=== PATIENT | male | born 1980 | race Caucasian/White ===

== ENCOUNTER 2019-01-09 11:05 | Emergency (ER) | payer MEDICAID ==
[~2019-01-09] VITALS: Ht 175.3 cm; Wt 90.7 kg
[2019-01-09 11:12] VITALS: BP 150/80
--- NOTE | 2019-01-09 11:26 | NUR ---
PATIENT AMBULATED TO BED 8.
--- NOTE | 2019-01-09 11:30 | NUR ---
38/M PRESENTS TO THE ED WITH C/O ABD PAIN, BODYACHES, AND N/V/D. PT STATES ABD PAIN STARTED TODAY, SAYS IT FEELS LIKE ITS "SQUEEZING" AND RATES PAIN 10/10 AT THIS TIME. BOWEL SOUNDS HYPERACTIVE IN ALL QUADRANTS. PT STATES THAT HE HAS HAD THE "STOMACH FLU", N/V/D FOR 3 DAYS AND STATES THAT HE HAS BEEN UNABLE TO KEEP FOOD DOWN. SKIN IS WARM, PINK, DRY. PT PRESENTS WITH A CLEAR SPEECH AND IS CONVERSING APPROPRIATELY. PT POSITIONED FOR COMFORT, LIGHT DIMMED, BED RAIL UP X 1 FOR PT SAFETY. ER MD TO SEE PT. YUE HX: DENIES RX: PT STATES THAT HE WAS PRESCRIBED LANSOPRAZOLE FROM A DIFFERENT FACILITY.
[2019-01-09] MEDS ORDERED: NACL 0.9% 1,000 ML IV ONE (11:42)
[2019-01-09] MEDS ORDERED: ONDANSETRON 4 MG/2 ML VIAL IVP ONE (11:45)
[2019-01-09] MEDS ORDERED: KETOROLAC 30 MG/ML VIAL IVP ONE (11:45)
[2019-01-09 13:20] LABS: BASOPHILS % (AUTO) 0.3 % (0.0-2.0); EOSINOPHILS % (AUTO) 0.3 % (0.0-4.0); HEMATOCRIT 44.5 % (36-52); HEMOGLOBIN 15.2 g/dL (12.0-18.0); LYMPHOCYTES # (AUTO) 0.4 K/uL (2.0-11.5); LYMPHOCYTES % (AUTO) 7.8 % (20.5-51.1); MEAN CORPUSCULAR HEMOGLOBIN 35 pg (27-31); MEAN CORPUSCULAR HGB CONC 34 g/dL (33-37); MEAN CORPUSCULAR VOLUME 101.9 fL (80-94); MONOCYTES # (AUTO) 0.6 K/uL (0.8-1.0); NEUTROPHILS # (AUTO) 4.4 K/uL (1.8-7.7); NEUTROPHILS % (AUTO) 80.6 % (42.2-75.2); PLATELET COUNT (AUTO) 101 K/uL (140-450); RED BLOOD CELL COUNT(AUTO) 4.37 MIL/uL (4.20-6.10); RED CELL DISTRIBUTION WIDTH 13.9 % (11.6-13.7); WHITE BLOOD COUNT (AUTO) 5.4 K/uL (4.8-10.8)
[2019-01-09 13:24] LABS: CARBON DIOXIDE 25.7 mmol/L (21-32); CREATININE 0.8 mg/dL (0.7-1.3); POTASSIUM 3.7 mmol/L (3.5-5.1)
[2019-01-09 13:30] LABS: TOTAL BILIRUBIN 0.9 mg/dL (0.0-1.0)
--- NOTE | 2019-01-09 13:58 | NUR ---
Patient does not wish to proceed with medical care recommended by Dr. Hammonds. Patient given information related to possible complications, up to and including , which could occur as a result of leaving hospital at this time. Patient verbalizes understanding of risks involved leaving against medical advice. Patient has signed AMA form.
== END 2019-01-09 13:58 | disposition left against medical advice (07) ==
LOC: MED 11:05
DX: K85.90 Acute pancreatitis without necrosis or infection, unspecified (principal); R11.2 Nausea with vomiting, unspecified; R19.7 Diarrhea, unspecified
CPT/HCPCS: 36415; 80053; 83690; 85025; 96361; 96374; 96375; 99283; J1885; J2405; J7030

== ENCOUNTER 2019-01-09 17:26 | Inpatient (IN) | payer MEDICAID ==
[~2019-01-09] VITALS: Ht 175.3 cm; Wt 84.8 kg
[2019-01-09 17:42] VITALS: BP 155/83
--- NOTE | 2019-01-09 17:53 | NUR ---
NOTIFIED DR. PATHAK AND CHARGE NURSE REGARDING THIS PT'S SITUATION, WE DO NOT HAVE ANY BED AVAILABLE, PER CHARGE NURSE, WE WILL CALL PT IN ONCE WE HAVE BED. PT WALKED TO LOBBY WITH STABLE CONDITION.
--- NOTE | 2019-01-09 18:38 | NUR ---
PT TAKEN TO BED 11.
--- NOTE | 2019-01-09 18:44 | NUR ---
38 Y/O MALE PRESENTING WITH UPPER ABD PAIN X3 DAYS, PRESSURE PAIN 10/10, N/V, PER PATIENT CANNOT HOLD ANYTHING DOWN. LITTLE INTAKE. DENIES DIARRHEA. NO MEDICAL HX. BOWEL SOUNDS AUSCULTATED, NORMOACTIVE. SIDE RAIL X1.
--- NOTE | 2019-01-09 19:17 | NUR ---
GAVE REPORT TO MARILYN PEOPLES.
--- NOTE | 2019-01-09 19:20 | NUR ---
RECEIVED REPORT FROM SHELTON CHENG. ASSUME CARE AT THIS TIME
[2019-01-09] MEDS ORDERED: KETOROLAC 30 MG/ML VIAL IVP ONE (19:55)
[2019-01-09] MEDS ORDERED: NACL 0.9% 1,000 ML IV ONE (19:55)
[2019-01-09] MEDS ORDERED: ONDANSETRON 4 MG/2 ML VIAL IVP ONE ×2 (19:55→22:00)
--- NOTE | 2019-01-09 20:00 | NUR ---
PT WENT TO CT BY WHEEL CHAIR
--- NOTE | 2019-01-09 20:21 | NUR ---
BLOOD DRAWN AND TAKEN TO LAB
[2019-01-09 20:45] LABS: BASOPHILS % (AUTO) 0.2 % (0.0-2.0); EOSINOPHILS % (AUTO) 0.1 % (0.0-4.0); HEMATOCRIT 42.7 % (36-52); HEMOGLOBIN 14.7 g/dL (12.0-18.0); LYMPHOCYTES # (AUTO) 0.3 K/uL (2.0-11.5); LYMPHOCYTES % (AUTO) 4.5 % (20.5-51.1); MEAN CORPUSCULAR HEMOGLOBIN 35 pg (27-31); MEAN CORPUSCULAR HGB CONC 34 g/dL (33-37); MONOCYTES # (AUTO) 0.6 K/uL (0.8-1.0); MONOCYTES % (AUTO) 9.9 % (1.7-9.3); NEUTROPHILS # (AUTO) 5.2 K/uL (1.8-7.7); NEUTROPHILS % (AUTO) 85.3 % (42.2-75.2); PLATELET COUNT (AUTO) 97 K/uL (140-450); RED BLOOD CELL COUNT(AUTO) 4.18 MIL/uL (4.20-6.10); RED CELL DISTRIBUTION WIDTH 14.4 % (11.6-13.7); WHITE BLOOD COUNT (AUTO) 6.1 K/uL (4.8-10.8)
[2019-01-09 21:04] LABS: ANION GAP 15.2 (8-16); CARBON DIOXIDE 26.5 mmol/L (21-32); CREATININE 0.8 mg/dL (0.7-1.3); POTASSIUM 3.7 mmol/L (3.5-5.1)
[2019-01-09 21:09] LABS: ALBUMIN 4.1 g/dL (3.4-5.0); TOTAL BILIRUBIN 1.3 mg/dL (0.0-1.0)
--- NOTE | 2019-01-09 21:30 | NUR ---
PATIENT STILL COMPLAINING OF PAIN IN ABDOMEN AND FEELING NAUSEOUS DESPITE ADMINISTERING TORADOL AND ZOFRAN.
--- NOTE | 2019-01-09 21:51 | NUR ---
SPOKE WITH RAHAT WITH CASE MANAGEMENT TO GIVE PATIENT CLINICAL INFORMATION. Addendum: 01/09/19 at 2152 by GINI RAHAT IS RECOMMENDING 24 HOUR OBSERVATION FOR CLINICAL REVIEW.
[2019-01-09] MEDS ORDERED: fentaNYL 0.05 MG/ML VIAL IVP ONE (22:00)
[2019-01-09] MEDS ORDERED: ONDANSETRON 4 MG/2 ML VIAL IM/IVP PRN (22:10)
[2019-01-09] MEDS ORDERED: MORPHINE SULFATE 2 MG/ML SYR IVP PRN (22:10)
[2019-01-09] MEDS ORDERED: DOCUSATE SODIUM 100 MG GELCAP PO PRN (22:10)
[2019-01-09] MEDS ORDERED: ACETAMINOPHEN 325 MG TAB PO PRN (22:10)
--- NOTE | 2019-01-09 22:24 | NUR ---
PATIENT GIVEN ANOTHER DOSE OF ZOFRAN AND 0.5MG FENTANYL FOR PAIN RATED AT 10/10. RESIDENT DOCTOR AT BEDSIDE.
[2019-01-09 22:39] LABS: PROTHROMBIN TIME 10.3 secs (10.8-13.4)
[2019-01-09 22:49] LABS: MAGNESIUM 1.5 mg/dL (1.8-2.4); PHOSPHORUS 2.9 mg/dL (2.5-4.9); THYROID STIMULATING HORMONE 1.89 uIU/mL (0.34-3.74)
[2019-01-09] MEDS ORDERED: LORazepam 2 MG/ML VIAL IVP PRN (22:50)
[2019-01-09] MEDS ORDERED: ENALAPRILAT 2.5 MG/2 ML VIAL IVP ONE (22:50)
--- NOTE | 2019-01-09 23:00 | NUR ---
Patient arrived in unit via gurney, accompanied by two DIP BRAZIER's; patient able to ambulate from gurney to bed without assistance. Patient A/Ox4, able to make needs known, Bengali speaking. Introduced self, updated board, oriented patient to room and hospital environment. No SOB or distress noted, on room air. IV site on right antecubital, 20 gauge, saline locked. Skin intact. Chief complaint is epigastric abdominal for 3 days; DX is Pancreatitis. Bed in the lowest position, call light within reach,. Initial assessment done. Will continue to monitor.
[2019-01-09] MEDS ORDERED: KETOROLAC 15 MG/ML VIAL IVP PRN (23:05)
[2019-01-09] MEDS: DEXT 5% / NACL 0.9% 500 ML IV SCH (23:36)
[2019-01-09] MEDS ORDERED: MORPHINE SULFATE 2 MG/ML SYR IVP ONE (23:55)
[2019-01-10] VITALS: BP 157/97
[2019-01-10 01:04] LABS: APPEARANCE,URINE CLEAR (CLEAR); BILIRUBIN,URINE 1+ (NEGATIVE); BLOOD, URINE NEGATIVE (NEGATIVE); COLOR,URINE YELLOW (YELLOW); LEUKOCYTE ESTERASE ,URINE NEGATIVE (NEGATIVE); NITRITE, URINE NEGATIVE (NEGATIVE); UGLUCOSE NEGATIVE (NEGATIVE)
[2019-01-10 01:26] LABS: BARBITURATE, URINE NEGATIVE ng/ml (NEG <=200); BENZODIAZEPINE, URINE NEGATIVE ng/mL (NEG <=200); CANNABINOID, URINE NEGATIVE ng/mL (NEG <=50); COCAINE, URINE NEGATIVE ng/mL (NEG <=300); OPIATE, URINE NEGATIVE ng/mL (NEG <=2000); PHENCYCLIDINE SCREEN,URINE NEGATIVE ng/mL (NEG <=25)
[2019-01-10] MEDS: DEXT 5% / NACL 0.9% 500 ML IV SCH ×3 (01:48→06:17)
[2019-01-10] MEDS ORDERED: ZOLPIDEM 5 MG TAB PO ONE (02:20)
--- NOTE | 2019-01-10 02:30 | NUR ---
Pateint complained of restless ness and pain at this time. Administered PRN pain medication and asked Dr. Avila for sleep aid. Orders made and carried out. Will monitor patient.
[2019-01-10] MEDS: LORazepam 1 MG TAB PO SCH ×3 (04:07→20:36)
--- NOTE | 2019-01-10 04:30 | NUR ---
Rounds done; no SOB or distress noted. Patient asleep, eyes closed, visible chest rise and fall noted.
[2019-01-10 05:57] LABS: BASOPHILS % (AUTO) 0.3 % (0.0-2.0); EOSINOPHILS % (AUTO) 0.1 % (0.0-4.0); HEMOGLOBIN 13.6 g/dL (12.0-18.0); LYMPHOCYTES # (AUTO) 0.4 K/uL (2.0-11.5); LYMPHOCYTES % (AUTO) 10.6 % (20.5-51.1); MEAN CORPUSCULAR HEMOGLOBIN 35 pg (27-31); MEAN CORPUSCULAR HGB CONC 34 g/dL (33-37); MEAN CORPUSCULAR VOLUME 101.6 fL (80-94); MONOCYTES # (AUTO) 0.5 K/uL (0.8-1.0); MONOCYTES % (AUTO) 11.6 % (1.7-9.3); NEUTROPHILS # (AUTO) 3.2 K/uL (1.8-7.7); NEUTROPHILS % (AUTO) 77.4 % (42.2-75.2); PLATELET COUNT (AUTO) 75 K/uL (140-450); RED BLOOD CELL COUNT(AUTO) 3.94 MIL/uL (4.20-6.10); RED CELL DISTRIBUTION WIDTH 13.9 % (11.6-13.7); WHITE BLOOD COUNT (AUTO) 4.1 K/uL (4.8-10.8)
[2019-01-10] MEDS: HYDROcodone/APAP 7.5/325 MG 1 TAB PO PRN ×2 (06:03→13:34)
[2019-01-10 06:07] LABS: ANION GAP 12.1 (8-16); CARBON DIOXIDE 27.1 mmol/L (21-32); CREATININE 0.7 mg/dL (0.7-1.3); POTASSIUM 3.2 mmol/L (3.5-5.1)
--- NOTE | 2019-01-10 06:15 | NUR ---
Vitals stable, due meds given. Will endorse to AM shift RN for continuity of care.
[2019-01-10 06:18] LABS: MAGNESIUM 1.6 mg/dL (1.8-2.4); PHOSPHORUS 2.5 mg/dL (2.5-4.9)
[2019-01-10 06:23] LABS: CHOL/HDL RATIO 2.5 (1-4.5)
[2019-01-10] MEDS ORDERED: MULTIVITAMIN-12 10 ML, THIAMINE 100 MG, FOLIC ACID 1 MG, MAGNESIUM SULFATE 50% 2,000 MG... IV ONE ×5 (07:00)
--- NOTE | 2019-01-10 07:05 | NUR ---
RECEIVED REPORT FROM NIGHTSHIFT NURSE. PATIENT IS ALERT AND AWAKE UPON ARRIVAL. ABLE TO MAKE NEEDS KNOWN. NO SIGNS OF DISTRESS NOTED AT THIS TIME. PATIENT IS NPO AND WAS NOTIFIED. ABLE TO VERBALIZE UNDERSTANDING. SIGN IS POSTED ON THE FRONT OF THE DOOR. SKIN WARM AND DRY TO TOUCH. RESPIRATIONS EVEN AND UNLABORED WITH NO SIGNS OF SOB OR RESPIRATORY DISTRESS. SAFETY MEASURES: HOB ELEVATED, BED IN LOWEST POSITION, AND CALL LIGHT WITHIN REACH.
[2019-01-10 08:00] VITALS: BP 133/89
[2019-01-10] MEDS ORDERED: MULTIVITAMIN-12 10 ML, THIAMINE 100 MG, FOLIC ACID 1 MG, MAGNESIUM SULFATE 50% 2,000 MG... IV SCH ×5 (08:00)
[2019-01-10] MEDS ORDERED: POTASSIUM CHLORIDE 10 MEQ TABER PO SCH ×2 (08:00→16:00)
--- NOTE | 2019-01-10 08:16 | NUR ---
PATIENT HAS BEEN SCREENED AND CATEGORIZED MODERATE NUTRITION RISK. PATIENT WILL BE SEEN WITHIN 3-5 DAYS OF ADMISSION. 01/12/19 01/14/[address]
[2019-01-10] MEDS ORDERED: METOPROLOL 25 MG TAB PO SCH (09:00)
[2019-01-10] MEDS ORDERED: ESCITALOPRAM 20 MG TAB PO SCH (09:00)
[2019-01-10] MEDS: chlordiazePOXIDE 25 MG CAP PO SCH ×3 (09:40→17:17)
[2019-01-10] MEDS: DEXT 5% /NACL 0.9% 1,000 ML IV SCH ×5 (09:42→22:59)
--- NOTE | 2019-01-10 09:48 | NUR ---
ADMINISTERED MEDICATION PRESCRIBED PER MD. PATIENT TOLERATED WELL. PT COMPLAINED OF NAUSEA SO PRN ZOFRAN WAS GIVEN. NO COMPLICATIONS AT THIS TIME
--- NOTE | 2019-01-10 10:36 | NUR ---
DC PLANNIN38 Y/O MALE PATIENT FROM HOME ADMITTED DUE TO EPIGASTRIC PAIN X3 DAYS. PATIENT WITH HISTORY OF HTN, ANXIETY AND ETOH USE. ON BANANA BAG. ROOM AIR. ABD CT SHOWED SUSPICIOUS FOR PANCREATITIS AND HEPATOMEGALY. NO CONSULTS AT THIS TIME. DC PLAN PENDING ON PATIENT'S RESPONSE TO TREATMENT.
--- NOTE | 2019-01-10 11:44 | NUR ---
Direct Care Specialist Note: Basic Screen: Yes High Risk DC Screen [place]: TRISH Thomas Relationship: FRIEND Pre-Admission Living Arrangements: Lives with Other Other: PARENTS Prior ADL Independent Current Home Health Name/Tel: N/A Current DME/02 Name/Tel: N/A Current Hospice Name/Tel: N/A Current Dialysis Name/Tel: N/A Healthcare Decision Maker: Patient Advance Directive No - REFUSED Physician Orders for Life Sustaining Treatment Form No Patient/Family Have Educational Needs No Information Taught: Advance Directive Person Taught: Patient Teaching Tools: Verbal Factors Affecting Learning: None Participation Level: Refused Evaluation: Verbalizes Understanding Discipline: Case Mgt/Social Svcs Tentative Discharge Plan/Destination: No Needs Identified Will require assistance post discharge: No Referred to Box Sorter: No Tentative Discharge Plan Summary: Patient is a 38 year old male admitted for pancreatitis. Patient has PMHX of hypertension. Patient was admitted from home. SW verified demographics with patient. Patient stated his PCP is Dr. Mary Morales and was last seen 3 months ago. Patient reports a history of anxiety. SW offered mental health resources but patient refused. Patient reports no substance abuse history. Patient's tentative plan after discharge is to return home. No further needs identified. Signature: [place] Hubbard Date: Jan 10, 2019 Time: 11:43
--- NOTE | 2019-01-10 11:50 | NUR ---
PT IS RESTING IN BED. PT IS STABLE. DENIES ANY VOMITING OR DIARRHEA. ABLE TO MAKE NEEDS KNOWN. RESPIRATIONS EVEN AND UNLABORED WITH NO SOB OR RESPIRATORY DISTRESS.
--- NOTE | 2019-01-10 13:34 | NUR ---
ADMINISTERED SCHEDULED MED PRESCRIBED BY MD ORDER. PATIENT TOLERATED WELL. MEDICATION EDUCATION PROVIDED TO PATIENT. PT WAS ABLE TO VERBALIZE UNDERSTANDING. PT STATED THAT HE HAD PAIN OF 5/10 ON THE PAIN SCALE ON ABDOMINAL AREA. PAIN MEDICATION ADMINISTERED PRESCRIBED BY MD. PT EDUCATED ON PAIN MEDICATION REGIME. PT RESTING IN BED WITH THE LIGHTS DIMMED.
--- NOTE | 2019-01-10 15:26 | NUR ---
MANAGER QUALITY ASSISTING PATIENT TO THE BATHROOM. NO SIGNS OR SYMPTOMS OF DISTRESS AT THIS MOMENT. INSTRUCT PATIENT TO USE CALL LIGHT FOR ANY ASSISTANCE.
--- NOTE | 2019-01-10 15:37 | NUR ---
INFORMED PATIENT THAT DR HAS CHANGED HIS DIET TO CLEAN LIQUID, PATIENT WAS AWARE. PROVIDED ICED WATER TO PATIENT. PATIENT AWAKE AND LOOKING AT HIS PHONE AT THIS TIME. NO SIGNS OF DISTRESS NOTED. SAFETY MEASURES IN PLACE. BED IN LOW POSITION AND CALL LIGHT WITHIN REACH. INSTRUCTED PATIENT TO USE THE CALL LIGHT FOR ANY ASSISTANCE AND PATIENT WAS AWARE.
--- NOTE | 2019-01-10 15:57 | NUR ---
ADMINISTERED MAG VIA IVP PER MD ORDER FOR LOW MAG 1.6 FROM LAB, MED EDUCATION PROVIDED TO PATIENT AND PATIENT VERBALIZED UNDERSTANDING. PATIENT IS AWAKE AND TALKING TO VISITORS BY BEDSIDE. DENIED PAIN, SOB, AND DIZZINESS. NO SIGNS OF DISTRESS NOTED. BED IN LOW POSITION AND CALL LIGHT WITHIN REACH. INSTRUCTED PATIENT TO USE THE CALL LIGHT FOR ANY ASSISTANCE AND PATIENT WAS AWARE.
[2019-01-10 16:00] VITALS: BP 143/67
[2019-01-10] MEDS ORDERED: MAG SULF 2000 MG/WATER PREMIX 50 ML IV SCH (16:00)
--- NOTE | 2019-01-10 16:25 | NUR ---
PATIENT RESTING IN BED. FAMILY AT BEDSIDE. ADMINISTERED MEDICATION ORDERED PER MD. PATIENT TOLERATED WELL. MEDICATION EDUCATION PERFORMED. PT WAS RECEPTIVE AND ABLE TO VERBALIZE TEACHING INSTRUCTIONS. NO COMPLAINTS OR CONCERNS. SAFETY PRECAUTIONS: HOB ELEVATED, BED IN LOWEST POSITION, AND CALL LIGHT WITHIN REACH.
--- NOTE | 2019-01-10 17:18 | NUR ---
ADMINISTERED MEDICATION PRESCRIBED. EDUCATED PATIENT ON MEDICATION REGIME. PT ABLE TO VERBALIZE TEACHING BACK. PT IS RESTING IN BED AND SHOWS NO SIGNS OR SYMPTOMS OF DISTRESS
--- NOTE | 2019-01-10 19:07 | NUR ---
ENDORSED TO NIGHTSHIFT NURSE AT BEDSIDE. PATIENT IN BED ALERT AND ORIENTED. NO SIGNS AND SYMPTOMS OF DISTRESS. PATIENT IN STABLE CONDITION.
--- NOTE | 2019-01-10 19:08 | NUR ---
Received endorsement from AM shift RN; patient A/Ox4, able to make needs known, Beninese speaking, ambulatory. Introduced self, updated board. No SOB or distress noted, on room air. IV site on right antecubital, 20 gauge, running IVF at 250mL/hr. Skin intact. Bed in the lowest position, call light within reach,. Initial assessment done. Will continue to monitor.
[2019-01-10] MEDS ORDERED: ZOLPIDEM 10 MG TAB PO PRN (21:00)
--- NOTE | 2019-01-10 21:52 | NUR ---
Due meds given, tolerated well.
--- NOTE | 2019-01-10 23:47 | NUR ---
Vitals taken, no distress noted.
[2019-01-11] VITALS: BP 130/89
[2019-01-11] MEDS: HYDROcodone/APAP 7.5/325 MG 1 TAB PO PRN (00:19)
--- NOTE | 2019-01-11 02:05 | NUR ---
Checks made, no SOB or distress noted. Patient asleep, eyes closed, visible chest rise and fall noted.
[2019-01-11] MEDS: DEXT 5% /NACL 0.9% 1,000 ML IV SCH ×2 (02:57→05:44)
--- NOTE | 2019-01-11 04:10 | NUR ---
Rounds done, no SOB or distress noted.
[2019-01-11] MEDS: LORazepam 1 MG TAB PO SCH (04:17)
--- NOTE | 2019-01-11 06:00 | NUR ---
Vitals stable, due meds given. Will endorse to AM shift RM for continuity of care.
--- NOTE | 2019-01-11 06:30 | NUR ---
Patient verbalized he wanted to go AMA; Dr. Moore made aware. Risks of AMA explained, patient refused to stay at the hospital for further treatment. ID bands removed, IV removed, tip intact. Patient signed AMA paperwork. Patient ambulatory; left unit unassisted. Vitals stable upon AMA.
[2019-01-11 07:56] LABS: BASOPHILS % (AUTO) 0.8 % (0.0-2.0); EOSINOPHILS # (AUTO) 0.1 K/uL (0-0.4); HEMATOCRIT 42.3 % (36-52); HEMOGLOBIN 14.2 g/dL (12.0-18.0); LYMPHOCYTES # (AUTO) 0.6 K/uL (2.0-11.5); LYMPHOCYTES % (AUTO) 18.9 % (20.5-51.1); MEAN CORPUSCULAR HEMOGLOBIN 35 pg (27-31); MEAN CORPUSCULAR HGB CONC 34 g/dL (33-37); MEAN CORPUSCULAR VOLUME 102.8 fL (80-94); MONOCYTES # (AUTO) 0.4 K/uL (0.8-1.0); MONOCYTES % (AUTO) 13.2 % (1.7-9.3); NEUTROPHILS # (AUTO) 2.2 K/uL (1.8-7.7); NEUTROPHILS % (AUTO) 65.1 % (42.2-75.2); PLATELET COUNT (AUTO) 84 K/uL (140-450); RED BLOOD CELL COUNT(AUTO) 4.11 MIL/uL (4.20-6.10); RED CELL DISTRIBUTION WIDTH 13.9 % (11.6-13.7); WHITE BLOOD COUNT (AUTO) 3.4 K/uL (4.8-10.8)
[2019-01-11 08:17] LABS: ANION GAP 16.2 (8-16); CARBON DIOXIDE 22.4 mmol/L (21-32); CREATININE 0.7 mg/dL (0.7-1.3); POTASSIUM 3.6 mmol/L (3.5-5.1)
[2019-01-11 08:27] LABS: PHOSPHORUS 2.6 mg/dL (2.5-4.9)
== END 2019-01-11 06:30 | disposition left against medical advice (07) | DRG 282 ==
LOC: MED 17:26 → MMU 22:07 → OBSVTOIN 01-10 12:56 → MTU 01-10 21:15
PROVIDERS: ADMIT General Practice; ATTEND General Practice
DX: K85.20 Alcohol induced acute pancreatitis without necrosis or infection (principal); E83.42 Hypomagnesemia; K76.0 Fatty (change of) liver, not elsewhere classified; R16.0 Hepatomegaly, not elsewhere classified; F10.239 Alcohol dependence with withdrawal, unspecified; Y90.0 Blood alcohol level of less than 20 mg/100 ml; E87.6 Hypokalemia; I10 Essential (primary) hypertension; Z53.29 Procedure and treatment not carried out because of patient's decision for other reasons; F41.8 Other specified anxiety disorders
CPT/HCPCS: 96361; 96374; 96375; 96376; 99285; G0378; 36415; 71045; 76705; 80048; 80053; 80305; 81003; 82150; 83690; 83735; 84100; 84443; 85025; 85610; 85730; 87081; 93005; A9153; G0482; J1885; J2060; J2270; J2405; J3010; J3411; J3475; J3490; J7042; Q0092

== ENCOUNTER 2020-12-10 14:26 | Emergency (ER) | payer MEDICAID ==
[~2020-12-10] VITALS: Ht 175.3 cm; Wt 95.3 kg
[2020-12-10 14:33] VITALS: BP 149/98
[2020-12-10] MEDS ORDERED: NACL 0.9% 1,000 ML IV ONE ×2 (15:45→17:30)
[2020-12-10] MEDS ORDERED: METOCLOPRAMIDE 10 MG/2 ML INJ VIAL IVP ONE (15:45)
[2020-12-10] MEDS ORDERED: diphenhydrAMINE 50 MG/ML VIAL IVP ONE (15:45)
--- NOTE | 2020-12-10 16:00 | NUR ---
LABS DRAWN ROBERTO AVENDANO AND GIVEN TO ELIZABET
[2020-12-10 16:07] LABS: BASOPHILS % (AUTO) 0.1 % (0.0-2.0); EOSINOPHILS % (AUTO) 0.3 % (0.0-4.0); HEMATOCRIT 45.9 % (36-52); HEMOGLOBIN 15.7 g/dL (12.0-18.0); LYMPHOCYTES # (AUTO) 0.4 K/uL (2.0-11.5); LYMPHOCYTES % (AUTO) 17.5 % (20.5-51.1); MEAN CORPUSCULAR HEMOGLOBIN 31 pg (27-31); MEAN CORPUSCULAR HGB CONC 34 g/dL (33-37); MEAN CORPUSCULAR VOLUME 91.1 fL (80-94); MONOCYTES # (AUTO) 0.2 K/uL (0.8-1.0); MONOCYTES % (AUTO) 7.3 % (1.7-9.3); NEUTROPHILS # (AUTO) 1.9 K/uL (1.8-7.7); NEUTROPHILS % (AUTO) 74.8 % (42.2-75.2); PLATELET COUNT (AUTO) 108 K/uL (140-450); RED BLOOD CELL COUNT(AUTO) 5.04 MIL/uL (4.20-6.10); RED CELL DISTRIBUTION WIDTH 13.2 % (11.6-13.7); WHITE BLOOD COUNT (AUTO) 2.5 K/uL (4.8-10.8)
[2020-12-10 16:22] LABS: ALBUMIN 3.4 g/dL (3.4-5.0); ANION GAP 13.7 (8-16); CARBON DIOXIDE 26.7 mmol/L (21-32); POTASSIUM 3.4 mmol/L (3.5-5.1); TOTAL BILIRUBIN 0.5 mg/dL (0.0-1.0)
--- NOTE | 2020-12-10 16:23 | NUR ---
40 Y/O M BIB SELF FROM HOME, PATIENT PRESENTS TO ED WITH ABD PAIN, NAUSEA NO VOMITING AND DIARRHEA FOR 5 DAYS. PT STATES HE HAS HAD LACK OF APPETITE DUE TO NAUSEA. DENIES HEMATURIA, DYSURIA OR URINARY RETENTION; SKIN IS PINK/COOL/DRY; AAOX4 WITH EVEN AND STEADY GAIT; LUNGS CLEAR BL; HR EVEN AND REGULAR; PT DENIES ANY FEVER, CP, SOB, OR COUGH AT THIS TIME; PATIENT STATES PAIN OF 10/10 AT THIS TIME; VSS; PATIENT POSITIONED FOR COMFORT; HOB ELEVATED; BEDRAILS UP X2; BED DOWN. ER MD MADE AWARE OF PT STATUS. PMH: DENIES NKA MED: NYQUIL
[2020-12-10] MEDS ORDERED: KETOROLAC 15 MG/ML VIAL IVP ONE (17:30)
[2020-12-10] MEDS ORDERED: POTASSIUM CHLORIDE 10 MEQ TABER PO ONE (17:30)
[2020-12-10 18:00] LABS: APPEARANCE,URINE CLEAR (CLEAR); BILIRUBIN,URINE NEGATIVE (NEGATIVE); BLOOD, URINE NEGATIVE (NEGATIVE); COLOR,URINE DARK YELLOW (YELLOW); LEUKOCYTE ESTERASE ,URINE NEGATIVE (NEGATIVE); NITRITE, URINE NEGATIVE (NEGATIVE); UGLUCOSE NEGATIVE (NEGATIVE)
[2020-12-10] MEDS ORDERED: DIPH25TA53 PO (19:07)
[2020-12-10] MEDS ORDERED: METO-485 PO (19:07)
[2020-12-10 19:30] VITALS: BP 138/86
--- NOTE | 2020-12-10 19:32 | NUR ---
Patient discharged with v/s stable. Written and verbal after care instructions given and explained. Patient alert, oriented and verbalized understanding of instructions. Ambulatory with steady gait. All questions addressed prior to discharge. ID band removed. Patient advised to follow up with PMD. Rx of Benadryl, Reglan given. Patient educated on indication of medication including possible reaction and side effects. Opportunity to ask questions provided and answered.
== END 2020-12-10 19:32 | disposition home or self-care (01) ==
LOC: MED 14:26
DX: U07.1 COVID-19 (principal)
CPT/HCPCS: 36415; 80053; 81003; 83690; 85025; 96361; 96374; 96375; 99284; J1200; J1885; J2765; U0003

== ENCOUNTER 2020-12-14 15:23 | Emergency (ER) | payer MEDICAID ==
[~2020-12-14] VITALS: Ht 175.3 cm; Wt 93.0 kg
[~2020-12-14 15:23] MED LIST: DIPH25TA53 PO; METO-485 PO
[2020-12-14 15:45] VITALS: BP 137/89
[2020-12-14] MEDS ORDERED: BENZONATATE 100 MG CAPLF PO SCH (16:05)
[2020-12-14] MEDS ORDERED: predniSONE 20 MG TAB PO ONE (16:05)
--- NOTE | 2020-12-14 16:32 | NUR ---
PT AMBULATED TO ER BED 3
--- NOTE | 2020-12-14 16:33 | NUR ---
LAB AT BEDSIDE
--- NOTE | 2020-12-14 17:00 | NUR ---
40/M BIB SELF WITH C/O SOB. STATES HE TESTED POSITIVE FOR COVID ON 12/10/20 AND STATES HE BEGAN FEELING SOB TODAY AND BODY ACHES TODAY. PT STATES 12/01 PAIN. STATES HAS BEEN TAKING TYLENOL FOR FEVER, BUT PAIN HAS NO RELIEF FROM PAIN. MEDHX: DENIES ALLERGIES: DENIES
[2020-12-14 17:11] LABS: BASOPHILS % (AUTO) 0.2 % (0.0-2.0); HEMATOCRIT 45.5 % (36-52); HEMOGLOBIN 15.9 g/dL (12.0-18.0); LYMPHOCYTES # (AUTO) 0.4 K/uL (2.0-11.5); LYMPHOCYTES % (AUTO) 6.3 % (20.5-51.1); MEAN CORPUSCULAR HEMOGLOBIN 32 pg (27-31); MEAN CORPUSCULAR HGB CONC 35 g/dL (33-37); MEAN CORPUSCULAR VOLUME 90.7 fL (80-94); MONOCYTES # (AUTO) 0.3 K/uL (0.8-1.0); MONOCYTES % (AUTO) 4.4 % (1.7-9.3); NEUTROPHILS # (AUTO) 6.1 K/uL (1.8-7.7); NEUTROPHILS % (AUTO) 89.1 % (42.2-75.2); PLATELET COUNT (AUTO) 202 K/uL (140-450); RED BLOOD CELL COUNT(AUTO) 5.01 MIL/uL (4.20-6.10); RED CELL DISTRIBUTION WIDTH 13.2 % (11.6-13.7); WHITE BLOOD COUNT (AUTO) 6.8 K/uL (4.8-10.8)
--- NOTE | 2020-12-14 17:14 | NUR ---
RT AT BEDSIDE
[2020-12-14 17:18] LABS: ANION GAP 13.9 (8-16); CARBON DIOXIDE 24.7 mmol/L (21-32); CREATININE 1.4 mg/dL (0.6-1.3); POTASSIUM 3.6 mmol/L (3.5-5.1)
--- NOTE | 2020-12-14 17:30 | NUR ---
DR LINDSAY AT BEDSIDE EXAMINING PT
[2020-12-14] MEDS ORDERED: ACETAMINOPHEN EXTRA STRENGTH 500 MG TAB PO ONE (17:35)
[2020-12-14] MEDS ORDERED: IBUPROFEN 400 MG TAB PO ONE (17:35)
[2020-12-14] MEDS ORDERED: AZITHROMYCIN 250 MG TAB PO ONE (17:35)
[2020-12-14] MEDS ORDERED: ALBU0.0912 IH (17:38)
[2020-12-14] MEDS ORDERED: PRED20TA5 PO (17:38)
[2020-12-14] MEDS ORDERED: BENZ-196 PO (17:38)
[2020-12-14] MEDS ORDERED: INHA1SPA74 MC (17:38)
[2020-12-14] MEDS ORDERED: AZIT250T4 PO (17:38)
[2020-12-14] MEDS ORDERED: IMO2 PO (17:38)
[2020-12-14 18:17] VITALS: BP 137/89
--- NOTE | 2020-12-14 18:17 | NUR ---
Patient discharged with v/s stable. Written and verbal after care instructions given and explained. Patient alert, oriented and verbalized understanding of instructions. Ambulatory with steady gait. All questions addressed prior to discharge. ID band removed. Patient advised to follow up with PMD. Rx of PROVENTIL HFA MDI, ZITHROMAX Z PACK, TESSALON PERLE, LOPERAMIDE, DELTASONE, PROCARE SPACER given. Patient educated on indication of medication including possible reaction and side effects. Opportunity to ask questions provided and answered.
== END 2020-12-14 18:17 | disposition home or self-care (01) ==
LOC: MED 15:23
DX: U07.1 COVID-19 (principal); J12.89 Other viral pneumonia; R19.7 Diarrhea, unspecified; E86.0 Dehydration; Z79.899 Other long term (current) drug therapy
CPT/HCPCS: 36415; 36600; 71045; 80048; 82803; 84484; 85025; 93005; 99285; J7512

== ENCOUNTER 2021-09-28 09:56 | Emergency (ER) | payer MEDICAID ==
[~2021-09-28] VITALS: Ht 175.3 cm; Wt 94.3 kg
[~2021-09-28 09:56] MED LIST changes: +ALBU0.0912 IH; +AZIT250T4 PO; +BENZ-196 PO; +IMO2 PO; +INHA1SPA74 MC; +PRED20TA5 PO
[2021-09-28 10:06] VITALS: BP 145/95
--- NOTE | 2021-09-28 10:14 | NUR ---
PT AMBULATED TO BED 08.
--- NOTE | 2021-09-28 10:43 | NUR ---
40YO MALE PT C/O PRESSURED 5/10 BACK PAIN XTHIS MORNING. PT REPORTS SUDDEN ONSET DANNY MID TO LOWER BACK ALONG W/ URINARY HESITENCY AND URGENCY, DENIES BLOOD OR DYSURIA. PT BACK PRESENTS WITHOUT VISIBLE INJURY AND NON TENDER. PT NOTES "DRINKING WATER LESS THAN HE SHOULD" AND EXPRESSED CONCERN FOR "KIDNEY STONES". DENIES N/V/D , CHEST PAIN , SOB OR TAKING MEDICATION FOR PAIN. PT AAOX4, IN NO VISIBLE DISTRESS, RESPIRATIONS EVEN AND UNLABORED. HOB POSITIONED PER COMFORT , BED AT LOWEST POSITION , BED RAIL UP X1 HX: DENIES NKA
[2021-09-28] MEDS ORDERED: KETOROLAC 30 MG/ML VIAL IM ONE (10:50)
[2021-09-28 11:00] LABS: APPEARANCE,URINE CLEAR (CLEAR); BILIRUBIN,URINE NEGATIVE (NEGATIVE); BLOOD, URINE 3+ (NEGATIVE); COLOR,URINE YELLOW (YELLOW); LEUKOCYTE ESTERASE ,URINE NEGATIVE (NEGATIVE); NITRITE, URINE NEGATIVE (NEGATIVE); UGLUCOSE NEGATIVE (NEGATIVE)
[2021-09-28 11:09] LABS: RBC,URINE 11-20 (MOD) /HPF (0-5)
[2021-09-28 11:10] LABS: OTHER CASTS, URINE None Seen /LPF (None Seen)
[2021-09-28 12:36] LABS: ANION GAP 9.4 (8-16); CARBON DIOXIDE 26.9 mmol/L (21-32); POTASSIUM 4.3 mmol/L (3.5-5.1)
[2021-09-28 12:43] LABS: BASOPHILS % (AUTO) 0.4 % (0.0-2.0); EOSINOPHILS # (AUTO) 0.1 K/uL (0-0.4); EOSINOPHILS % (AUTO) 1.1 % (0.0-4.0); HEMATOCRIT 44.6 % (36-52); HEMOGLOBIN 15.4 g/dL (12.0-18.0); LYMPHOCYTES # (AUTO) 1.3 K/uL (2.0-11.5); LYMPHOCYTES % (AUTO) 14.8 % (20.5-51.1); MEAN CORPUSCULAR HEMOGLOBIN 31 pg (27-31); MEAN CORPUSCULAR HGB CONC 35 g/dL (33-37); MEAN CORPUSCULAR VOLUME 90.3 fL (80-94); MONOCYTES # (AUTO) 0.7 K/uL (0.8-1.0); MONOCYTES % (AUTO) 7.7 % (1.7-9.3); NEUTROPHILS # (AUTO) 6.5 K/uL (1.8-7.7); PLATELET COUNT (AUTO) 206 K/uL (140-450); RED BLOOD CELL COUNT(AUTO) 4.94 MIL/uL (4.20-6.10); RED CELL DISTRIBUTION WIDTH 13.4 % (11.6-13.7); WHITE BLOOD COUNT (AUTO) 8.5 K/uL (4.8-10.8)
--- NOTE | 2021-09-28 12:55 | NUR ---
PT TAKEN TO CT VIA WHEELCHAIR
--- NOTE | 2021-09-28 13:03 | NUR ---
PT BROUGHT BACK FROM CT TO ROOM VIA WHEELCHAIR
--- NOTE | 2021-09-28 13:04 | NUR ---
PT AMBULATED TO RESTROOM
[2021-09-28] MEDS ORDERED: IBUP-2213 PO (13:30)
[2021-09-28] MEDS ORDERED: TAMS0.4C96 PO (13:30)
[2021-09-28 13:41] VITALS: BP 122/75
--- NOTE | 2021-09-28 13:45 | NUR ---
Patient discharged with v/s stable. Written and verbal after care instructions given and explained. Patient alert, oriented and verbalized understanding of instructions. Ambulatory with steady gait. All questions addressed prior to discharge. ID band removed. Patient advised to follow up with PMD. Rx of FLOXMAX given. Patient educated on indication of medication including possible reaction and side effects. Opportunity to ask questions provided and answered.
== END 2021-09-28 13:45 | disposition home or self-care (01) ==
LOC: MED 09:56
DX: N20.1 Calculus of ureter (principal)
CPT/HCPCS: 36415; 74176; 80048; 81001; 85025; 87086; 96372; 99285; J1885

== ENCOUNTER 2022-11-07 13:59 | Emergency (ER) | payer MEDICAID ==
[~2022-11-07] VITALS: Ht 175.3 cm; Wt 93.9 kg
[~2022-11-07 13:59] MED LIST changes: +IBUP-2213 PO; +TAMS0.4C96 PO
[2022-11-07 14:23] VITALS: BP 121/88; PULSE 90; RESP 16; TEMP 97.7; O2SAT 97
[2022-11-07] MEDS ORDERED: ONDANSETRON 4 MG ODT PO ONE (15:20)
[2022-11-07 16:11] LABS: BASOPHILS % (AUTO) 0.5 % (0.0-2.0); EOSINOPHILS % (AUTO) 0.1 % (0.0-4.0); HEMOGLOBIN 16.7 g/dL (12.0-18.0); LYMPHOCYTES % (AUTO) 15.4 % (20.5-51.1); MEAN CORPUSCULAR HEMOGLOBIN 31 pg (27-31); MEAN CORPUSCULAR HGB CONC 34 g/dL (33-37); MEAN CORPUSCULAR VOLUME 90.7 fL (80-94); MONOCYTES # (AUTO) 0.7 K/uL (0.8-1.0); MONOCYTES % (AUTO) 10.9 % (1.7-9.3); NEUTROPHILS # (AUTO) 4.9 K/uL (1.8-7.7); NEUTROPHILS % (AUTO) 73.1 % (42.2-75.2); PLATELET COUNT (AUTO) 194 K/uL (140-450); RED CELL DISTRIBUTION WIDTH 13.9 % (11.6-13.7); WHITE BLOOD COUNT (AUTO) 6.7 K/uL (4.8-10.8)
[2022-11-07 16:16] LABS: ANION GAP 17.2 (8-16); CALCIUM 8.3 mg/dL (8.5-10.1); CARBON DIOXIDE 22.7 mmol/L (21-32); CREATININE 1.2 mg/dL (0.6-1.3); POTASSIUM 3.9 mmol/L (3.5-5.1); TOTAL BILIRUBIN 1.3 mg/dL (0.0-1.0); TOTAL PROTEIN, SERUM 7.8 g/dL (6.4-8.2)
[2022-11-07] MEDS ORDERED: MORPHINE SULFATE 4 MG/ML SYR IVP ONE (16:50)
[2022-11-07] MEDS ORDERED: METOCLOPRAMIDE 10 MG/2 ML INJ VIAL IVP ONE (16:50)
[2022-11-07] MEDS ORDERED: FAMOTIDINE 20 MG/2 ML VIAL IVP ONE (16:50)
[2022-11-07] MEDS ORDERED: NACL 0.9% 1,000 ML IV ONE (16:50)
[2022-11-07] MEDS ORDERED: ONDA-188 PO (17:58)
[2022-11-07] MEDS ORDERED: SUCR1TAB35 PO (17:58)
[2022-11-07] MEDS ORDERED: FAMO-90 PO (17:58)
[2022-11-07] MEDS ORDERED: DICYCLOMINE HCL LIQUID 20 MG, ALUMINUM HYD/MAG/SIMETHICONE 30 ML, LIDOCAINE VISCOUS 2% ... PO ONE ×3 (18:00)
[2022-11-07] MEDS ORDERED: [UNRECOGNIZED DRUG - CODE] PO (18:03)
[2022-11-07] MEDS ORDERED: DICYCLOMINE HCL LIQUID 10 MG/5 ML UDC ONE (18:05)
[2022-11-07] MEDS ORDERED: ALUMINUM HYD/MAG/SIMETHICONE 30 ML UDC ONE (18:05)
[2022-11-07] MEDS ORDERED: ALUMINUM HYD/MAG/SIMETHICONE 30 ML UDC PO ONE (18:05)
[2022-11-07 18:44] VITALS: BP 147/86; PULSE 79; RESP 12; TEMP 97.7; O2SAT 98
== END 2022-11-07 18:44 | disposition home or self-care (01) ==
LOC: MED 13:59
DX: K29.20 Alcoholic gastritis without bleeding (principal); R74.01 Elevation of levels of liver transaminase levels; Z79.899 Other long term (current) drug therapy
CPT/HCPCS: 36415; 71046; 80053; 81002; 83690; 85025; 96361; 96374; 96375; 99284; J2270; J2765; J3490; J7030; Q0162

== ENCOUNTER 2023-04-27 08:54 | Emergency (ER) | payer MEDICAID ==
[~2023-04-27] VITALS: Ht 175.3 cm; Wt 99.8 kg
[~2023-04-27 08:54] MED LIST changes: +FAMO-90 PO; +ONDA-188 PO; +SUCR1TAB35 PO; +[UNRECOGNIZED DRUG - CODE] PO
[2023-04-27 08:58] VITALS: BP 161/108; PULSE 100; RESP 16; TEMP 97.2; O2SAT 97
[2023-04-27 09:40] LABS: BASOPHILS # (AUTO) 0.1 K/uL (0.00-0.22); BASOPHILS % (AUTO) 1.5 % (0.0-2.0); EOSINOPHILS % (AUTO) 0.3 % (0.0-4.0); HEMATOCRIT 48.9 % (36-52); HEMOGLOBIN 17.1 g/dL (12.0-18.0); LYMPHOCYTES % (AUTO) 18.9 % (20.5-51.1); MEAN CORPUSCULAR HEMOGLOBIN 33 pg (27-31); MEAN CORPUSCULAR HGB CONC 35 g/dL (33-37); MEAN CORPUSCULAR VOLUME 93.4 fL (80-94); MONOCYTES # (AUTO) 0.7 K/uL (0.8-1.0); MONOCYTES % (AUTO) 13.6 % (1.7-9.3); NEUTROPHILS # (AUTO) 3.6 K/uL (1.8-7.7); NEUTROPHILS % (AUTO) 65.7 % (42.2-75.2); PLATELET COUNT (AUTO) 224 K/uL (140-450); RED BLOOD CELL COUNT(AUTO) 5.24 MIL/uL (4.20-6.10); RED CELL DISTRIBUTION WIDTH 13.7 % (11.6-13.7); WHITE BLOOD COUNT (AUTO) 5.5 K/uL (4.8-10.8)
[2023-04-27] MEDS: FAMOTIDINE 20 MG/2 ML VIAL IVP ONE (09:47)
[2023-04-27] MEDS: ONDANSETRON 4 MG/2 ML VIAL IVP ONE (09:49)
[2023-04-27] MEDS: NACL 0.9% 1,000 ML IV SCH (09:49)
[2023-04-27 09:54] LABS: CALCIUM 8.8 mg/dL (8.5-10.1); CARBON DIOXIDE 26.4 mmol/L (21-32); CREATININE 1.1 mg/dL (0.6-1.3); POTASSIUM 3.4 mmol/L (3.5-5.1)
[2023-04-27 09:58] LABS: BILIRUBIN,DIRECT 0.2 mg/dL (0.0-0.3); TOTAL PROTEIN, SERUM 9.1 g/dL (6.4-8.2)
[2023-04-27] MEDS ORDERED: FAMO-92 PO (11:20)
[2023-04-27] MEDS ORDERED: LOPE-289 PO (11:20)
[2023-04-27] MEDS ORDERED: ONDA-188 PO (11:20)
[2023-04-27 11:30] VITALS: BP 138/95; PULSE 95; RESP 16; TEMP 97.2; O2SAT 97
[2023-04-28] MEDS ORDERED: FAMO-90 PO (13:12)
[2023-04-28] MEDS ORDERED: MAG-27 PO (13:12)
[2023-04-28] MEDS ORDERED: BEN10 PO (13:12)
== END 2023-04-27 11:32 | disposition home or self-care (01) ==
LOC: MED 08:54
DX: R11.10 Vomiting, unspecified (principal); R19.7 Diarrhea, unspecified; R10.10 Upper abdominal pain, unspecified; Z79.899 Other long term (current) drug therapy
CPT/HCPCS: 36415; 80048; 80076; 83690; 85025; 96361; 96374; 96375; 99284; J2405; J3490; J7030

== ENCOUNTER 2023-04-28 11:23 | Emergency (ER) | payer MEDICAID ==
[~2023-04-28] VITALS: Ht 175.3 cm; Wt 99.8 kg
[~2023-04-28 11:23] MED LIST changes: +FAMO-92 PO; +LOPE-289 PO
[2023-04-28 11:52] VITALS: BP 142/103; PULSE 97; RESP 19; TEMP 98.6; O2SAT 96
[2023-04-28] MEDS ORDERED: ALUMINUM HYD/MAG/SIMETHICONE 30 ML UDC ONE (12:32)
[2023-04-28] MEDS ORDERED: DICYCLOMINE HCL LIQUID 10 MG/5 ML UDC ONE (12:32)
[2023-04-28] MEDS: DICYCLOMINE HCL LIQUID 20 MG, ALUMINUM HYD/MAG/SIMETHICONE 30 ML, LIDOCAINE VISCOUS 2% ... PO ONE (12:33)
[2023-04-28] MEDS ORDERED: BEN10 PO (13:12)
[2023-04-28] MEDS ORDERED: MAG-27 PO (13:12)
[2023-04-28] MEDS ORDERED: FAMO-90 PO (13:12)
== END 2023-04-28 13:21 | disposition home or self-care (01) ==
LOC: MED 11:23
DX: R10.13 Epigastric pain (principal); Z79.899 Other long term (current) drug therapy
CPT/HCPCS: 99283

== ENCOUNTER 2023-08-23 11:19 | Emergency (ER) | payer MEDICAID ==
[~2023-08-23] VITALS: Ht 175.3 cm; Wt 101.2 kg
[~2023-08-23 11:19] MED LIST changes: +BEN10 PO; +MAG-27 PO; +SUCR-3 PO; -SUCR1TAB35 PO
[2023-08-23 11:27] VITALS: BP 149/102; PULSE 106; RESP 17; TEMP 98.3; O2SAT 100
[2023-08-23] MEDS: NACL 0.9% 1,000 ML IV ONE (12:00)
[2023-08-23] MEDS: ONDANSETRON 4 MG/2 ML VIAL IVP ONE (12:03)
[2023-08-23] MEDS: FAMOTIDINE 20 MG/2 ML VIAL IVP ONE (12:06)
[2023-08-23] MEDS: ALUMINUM HYD/MAG/SIMETHICONE 30 ML UDC PO ONE (12:07)
[2023-08-23 12:10] LABS: BASOPHILS # (AUTO) 0.1 K/uL (0.00-0.22); BASOPHILS % (AUTO) 0.9 % (0.0-2.0); EOSINOPHILS % (AUTO) 0.3 % (0.0-4.0); HEMATOCRIT 48.5 % (36-52); HEMOGLOBIN 16.6 g/dL (12.0-18.0); LYMPHOCYTES # (AUTO) 1.3 K/uL (2.0-11.5); MEAN CORPUSCULAR HEMOGLOBIN 32 pg (27-31); MEAN CORPUSCULAR HGB CONC 34 g/dL (33-37); MEAN CORPUSCULAR VOLUME 94.7 fL (80-94); MONOCYTES # (AUTO) 0.4 K/uL (0.8-1.0); NEUTROPHILS # (AUTO) 4.5 K/uL (1.8-7.7); NEUTROPHILS % (AUTO) 71.8 % (42.2-75.2); PLATELET COUNT (AUTO) 211 K/uL (140-450); RED BLOOD CELL COUNT(AUTO) 5.12 MIL/uL (4.20-6.10); RED CELL DISTRIBUTION WIDTH 13.7 % (11.6-13.7); WHITE BLOOD COUNT (AUTO) 6.3 K/uL (4.8-10.8)
[2023-08-23 12:25] LABS: CALCIUM 8.2 mg/dL (8.5-10.1); CARBON DIOXIDE 21.7 mmol/L (21-32); POTASSIUM 3.7 mmol/L (3.5-5.1)
[2023-08-23 12:33] LABS: ALBUMIN 4.1 g/dL (3.4-5.0); BILIRUBIN,DIRECT 0.2 mg/dL (0.0-0.3); TOTAL BILIRUBIN 0.7 mg/dL (0.0-1.0); TOTAL PROTEIN, SERUM 8.1 g/dL (6.4-8.2)
[2023-08-23] MEDS ORDERED: MAG-27 PO (12:58)
[2023-08-23] MEDS: KETOROLAC 30 MG/ML VIAL IVP ONE (13:06)
== END 2023-08-23 13:25 | disposition home or self-care (01) ==
LOC: MED 11:19
DX: K29.20 Alcoholic gastritis without bleeding (principal); R74.01 Elevation of levels of liver transaminase levels; F50.81 Binge eating disorder; Z68.32 Body mass index [BMI] 32.0-32.9, adult; Z79.1 Long term (current) use of non-steroidal anti-inflammatories (NSAID); Z79.2 Long term (current) use of antibiotics; Z79.899 Other long term (current) drug therapy
CPT/HCPCS: 36415; 80048; 80076; 83690; 85025; 96361; 96374; 96375; 99284; J1885; J2405; J3490; J7030